=== PATIENT | female | born 1965 | race Caucasian/White ===

== ENCOUNTER → 2017-04-10 | Outpatient (CLI) | payer OTHER ==
--- NOTE | 2017-04-10 10:23 | MM ---
Reason for exam: follow-up at short interval from prior study. Last mammogram was performed 6 months ago. History: Family history of breast cancer in aunt. Physical Findings: Nurse did not find any significant physical abnormalities on exam. MG Diagnostic Mammo RT w CAD CC and MLO view(s) were taken of the right breast. Prior study comparison: October 10, 2016, right breast MG work up mamm w CAD RT. October 08, 2016, bilateral MG screening mammo w CAD. There are scattered fibroglandular densities. No suspicious calcifications are seen. Asymmetric density in the right MLO view. These results were verbally communicated with the patient and result sheet given to the patient on 04/10/17. ASSESSMENT: Incomplete: need additional imaging evaluation, BI-RAD 0 RECOMMENDATION: Ultrasound of the right breast.
--- NOTE | 2017-04-10 10:25 | USB ---
Reason for exam: additional evaluation requested from abnormal screening. History: Family history of breast cancer in aunt. US Breast RT Right breast ultrasound includes all four quadrants, the retroareolar region and axilla. Finding demonstrates no cystic or solid lesion seen. These results were verbally communicated with the patient and result sheet given to the patient on 04/10/17. ASSESSMENT: Negative, BI-RAD 1 RECOMMENDATION: Follow-up diagnostic mammogram of both breasts in 6 months. Back on schedule for September 2017.
== END | disposition home or self-care (01) ==
LOC: RADMAMWWP 08:46
PROVIDERS: ATTEND Family Medicine
DX: R92.8 Other abnormal and inconclusive findings on diagnostic imaging of breast (principal)
CPT/HCPCS: 76641; G0206

== ENCOUNTER → 2018-05-12 | Outpatient (CLI) | payer OTHER ==
--- NOTE | 2018-05-12 14:35 | MM ---
Reason for exam: additional evaluation requested from prior study. Last mammogram was performed 1 year and 1 month ago. History: Family history of breast cancer in aunt. Physical Findings: Nurse did not find any significant physical abnormalities on exam. MG Diagnostic Mammo w CAD LADAN Bilateral CC and MLO view(s) were taken. Prior study comparison: April 10, 2017, right breast MG diagnostic mammo RT w CAD. October 10, 2016, right breast MG work up mamm w CAD RT. The breast tissue is heterogeneously dense. This may lower the sensitivity of mammography. No suspicious abnormality. No significant new findings when compared with previous films. These results were verbally communicated with the patient and result sheet given to the patient on 05/12/18. ASSESSMENT: Negative, BI-RAD 1 RECOMMENDATION: Routine screening mammogram of both breasts in 1 year.
== END | disposition home or self-care (01) ==
LOC: RADMAMWWP 12:47
PROVIDERS: ATTEND Family Medicine
DX: R92.8 Other abnormal and inconclusive findings on diagnostic imaging of breast (principal)
CPT/HCPCS: 77066

== ENCOUNTER → 2020-05-17 | Outpatient (CLI) | payer OTHER ==
--- NOTE | 2020-05-21 10:44 | MM ---
Reason for exam: screening (asymptomatic). Last mammogram was performed 1 year and 1 month ago. History: Patient is postmenopausal. Family history of breast cancer in aunt. Physical Findings: A clinical breast exam by your physician is recommended on an annual basis and results should be correlated with mammographic findings. MG Screening Mammo w CAD Bilateral CC and MLO view(s) were taken. Prior study comparison: April 14, 2019, mammogram, performed at [facility]. October 08, 2016, bilateral MG screening mammo w CAD. October 04, 2015, bilateral MG screening mammo w CAD. The breast tissue is heterogeneously dense. This may lower the sensitivity of mammography. There are benign appearing round calcifications in the left breast. Asymmetric breast tissue in the right anterior upper outer quadrant is stable. There is no discrete abnormality. ASSESSMENT: Benign, BI-RAD 2 RECOMMENDATION: Routine screening mammogram of both breasts in 1 year.
== END | disposition home or self-care (01) ==
LOC: RADMAMWWP 09:46
PROVIDERS: ATTEND Physician Assistant Medical
DX: Z12.31 Encounter for screening mammogram for malignant neoplasm of breast (principal)
CPT/HCPCS: 77067

== ENCOUNTER → 2021-05-23 | Outpatient (CLI) | payer OTHER ==
--- NOTE | 2021-05-27 08:45 | MM ---
Reason for exam: screening (asymptomatic). Last mammogram was performed 1 year ago. History: Patient is postmenopausal. Family history of breast cancer in aunt. Took hormonal contraceptives for 13 years beginning at age 16. Physical Findings: A clinical breast exam by your physician is recommended on an annual basis and results should be correlated with mammographic findings. MG Screening Mammo w CAD Bilateral CC and MLO view(s) were taken. Prior study comparison: May 17, 2020, bilateral MG screening mammo w CAD. April 14, 2019, mammogram, performed at [facility]. There are scattered fibroglandular densities. No significant changes when compared with prior studies. ASSESSMENT: Benign, BI-RAD 2 RECOMMENDATION: Routine screening mammogram of both breasts in 1 year.
== END | disposition home or self-care (01) ==
LOC: RADMAMWWP 13:46
DX: Z12.31 Encounter for screening mammogram for malignant neoplasm of breast (principal); Z78.0 Asymptomatic menopausal state; Z80.3 Family history of malignant neoplasm of breast
CPT/HCPCS: 77067

== ENCOUNTER → 2022-05-26 | Outpatient (CLI) | payer OTHER ==
--- NOTE | 2022-05-27 20:14 | MM ---
Reason for Exam: Screening (asymptomatic). Last screening mammogram was performed 12 month(s) ago. Patient History: Menarche at age 12. First Full-Term at age 29. Late child-bearing (after 30). Postmenopausal. Hormonal Contraceptives, from age 16 until age 27. Maternal aunt had breast cancer, age 52. Risk Values: Susie 5 year model risk: 1.8%. NCI Lifetime model risk: 10.7%. Prior Study Comparison: 04/14/2019 Screening Mammogram, [facility]. 05/17/2020 Bilateral Screening Mammogram, [facility]. 05/23/2021 Bilateral Screening Mammogram, [facility]. Tissue Density: The breast tissue is almost entirely fat. Findings: Analyzed By CAD. Unchanged left-sided upper outer quadrant focal asymmetry. There is no suspicious group of microcalcifications or new suspicious mass in either breast. Overall Assessment: Benign, BI-RAD 2 Management: Screening Mammogram of both breasts in 1 year. 1. Patient should continue monthly self breast exams. 2. A clinical breast exam by your physician is recommended on an annual basis. 3. This exam should not preclude additional follow-up of suspicious palpable abnormalities. Electronically signed and approved by: Lemuel Alexander M.D. Radiologist
== END | disposition home or self-care (01) ==
LOC: RADMAMWWP 09:10
DX: Z12.31 Encounter for screening mammogram for malignant neoplasm of breast (principal)
CPT/HCPCS: 77067

== ENCOUNTER 2022-05-28 08:02 | Day surgery (SDC) | payer OTHER ==
[2022-05-23 16:46] VITALS: BMI 39.0
--- NOTE | 2022-05-28 07:39 | P.GSHP ---
History of Present Illness H&P Date: 05/28/22 CHIEF COMPLAINT: Colon screen HISTORY OF PRESENT ILLNESS: The patient is a 56-year-old female who presents for colon screen. Lower endoscopy was offered for further evaluation and management. PAST MEDICAL HISTORY: Please see list. PAST SURGICAL HISTORY: Please see list. MEDICATIONS: Please see list. ALLERGIES: Please see list. SOCIAL HISTORY: No illicit drug use FAMILY HISTORY: No reports of Crohn disease or ulcerative colitis. REVIEW OF ORGAN SYSTEMS: CONSTITUTIONAL: No reports of fevers or chills. PHYSICAL EXAM: VITAL SIGNS: Stable GENERAL: Well-developed pleasant in no acute distress. HEENT: No scleral icterus. Extraocular movements grossly intact. Moist buccal mucosa. NECK: Supple without lymphadenopathy. CHEST: Unlabored respirations. Equal bilateral excursions. CARDIOVASCULAR: Regular rate and rhythm. Distal 2+ pulses. ABDOMEN: Soft, nontender, nondistended. MUSCULOSKELETAL: No clubbing, cyanosis, or edema. ASSESSMENT: 1. Colon screen. PLAN: 1. Recommend proceeding with a lower endoscopy Past Medical History Past Medical History: Hypertension, Thyroid Disorder Additional Past Medical History / Comment(s): hypothyroid History of Any Multi-Drug Resistant Organisms: None Reported Past Surgical History: Section, Tubal Ligation Additional Past Surgical History / Comment(s): Colonoscopy. Varicose veins lasered, bilat greater saphenous. Past Anesthesia/Blood Transfusion Reactions: No Reported Reaction, Motion Sickness Smoking Status: Former smoker - Past Family History Mother Family Medical History: Deep Vein Thrombosis (DVT) Additional Family Medical History / Comment(s): varicose veins Medications and Allergies Home Medications Medication Instructions Recorded Confirmed Type hydroCHLOROthiazide [Hydrodiuril] 12.5 mg PO DAILY 04/09/14 05/23/22 History B,C/Folic/Zinc/Copper Ox/Vit E 1 each PO DAILY 09/20/15 05/23/22 History [Stress B-Complex Tablet] Cholecalciferol [Vitamin D3] 1,000 unit PO SUWESA 09/20/15 05/23/22 History Levothyroxine Sodium [Synthroid] 25 mcg PO DAILY 09/20/15 05/23/22 History Calcium Carbonate [Calcium] 600 mg PO DAILY 05/23/22 05/23/22 History Fluticasone Propionate [Flonase 2 spray EA NOSTRIL DAILY 05/23/22 05/23/22 History Allergy Relief] Ibuprofen [Motrin Ib] 200 mg PO Q8H PRN 05/23/22 05/23/22 History L.acidoph,Paracasei, B.lactis 1 each PO HS 05/23/22 05/23/22 History [Probiotic] Multivitamins, Thera [Multivitamin 1 tab PO DAILY 05/23/22 05/23/22 History (formulary)] Allergies Allergy/AdvReac Type Severity Reaction Status Date / Time ciprofloxacin [From Cipro] Allergy Vomiting Verified 05/23/22 16:27 ciprofloxacin HCl Allergy Vomiting Verified 05/23/22 16:27 [From Cipro] Sulfa (Sulfonamide Allergy Anaphylaxis Verified 05/23/22 16:27 Antibiotics)
[~2022-05-28 08:02] MED LIST: LACTATED RINGERS 1,000 ML IV SCH; LIDOCAINE 1% (10MG/ML) FOR IV START INTRADERMA PRN
[2022-05-28 08:25] VITALS: TEMP 97.2
[2022-05-28] MEDS ORDERED: PROPOFOL 10 MG/ML 20 ML VIAL IV ONE (09:25)
[2022-05-28 10:01] VITALS: RESP 16
[2022-05-28 10:23] VITALS: BP 128/76; PULSE 57
--- NOTE | 2022-05-28 10:34 | P.PCN ---
Date of Procedure: 05/28/22 Description of Procedure: PREOPERATIVE DIAGNOSIS: Personal history of colon polyps Colonoscopy screening POSTOPERATIVE DIAGNOSIS: Tubular adenoma ascending colon Pandiverticulosis Sigmoid diverticulosis Internal hemorrhoids, grade 2 OPERATION: Colonoscopy to the ileocecal valve and appendiceal orifice, cecum Colonoscopy with cold forceps biopsy SURGEON: Irais Hinojosa MD. ANESTHESIA: MAC. INDICATIONS: The patient is an 56-year-old male who presents personal history of colon polyps. Last colonoscopy 5 years. Benefits and risks were described and informed consent was obtained. DESCRIPTION OF PROCEDURE: The patient had undergone Sutab prep. The patient had been brought into the operating room and laid in the left lateral decubitus position. After adequate intravenous sedation, the rectum was examined with 2% lidocaine jelly. External hemorrhoids were encountered. The rectal tone was within normal limits. No lesions were palpated in the rectal vault. An Olympus colonoscope was advanced until the cecum, ileocecal valve and appendiceal orifice were clearly viewed. The prep was excellent. Pandiverticulosis and sigmoid diverticulosis was encountered. Colonic polyps were found and removed. No evidence of focal colitis was found. Retroflexion of the scope demonstrated grade 2 internal hemorrhoids without active bleeding or inflammation. The colon was desufflated. The patient had tolerated the procedure well. Withdrawal time was over 6 minutes. FINDINGS: Aronchick preparation quality scale 1 (1-5) Internal hemorrhoids, grade 2 External hemorrhoids, grade 2 No arteriovenous malformations. Sigmoid diverticulosis, moderate to severe with pandiverticulosis Removal of 1 polyp: - Cold forceps biopsy at ascending colon, 5 mm polyp. No focal colitis. RECOMMENDATIONS: Repeat colonoscopy in 5 years2026 Plan - Discharge Summary Discharge Rx Participant: No New Discharge Prescriptions: Continue hydroCHLOROthiazide [Hydrodiuril] 12.5 mg PO DAILY Cholecalciferol [Vitamin D3 (25 Mcg = 1000 Iu)] 1,000 unit PO SUWESA Levothyroxine Sodium [Synthroid] 25 mcg PO DAILY B,C/Folic/Zinc/Copper Ox/Vit E [Stress B-Complex Tablet] 1 each PO DAILY L.acidoph,Paracasei, B.lactis [Probiotic] 1 each PO HS Fluticasone Propionate [Flonase Allergy Relief] 2 spray EA NOSTRIL DAILY Ibuprofen [Motrin Ib] 200 mg PO Q8H PRN PRN Reason: Pain Multivitamins, Thera [Multivitamin (formulary)] 1 tab PO DAILY Calcium Carbonate [Calcium] 600 mg PO DAILY Discharge Medication List hydroCHLOROthiazide [Hydrodiuril] 12.5 mg PO DAILY 04/09/14 [History] B,C/Folic/Zinc/Copper Ox/Vit E [Stress B-Complex Tablet] 1 each PO DAILY 09/20/15 [History] Cholecalciferol [Vitamin D3 (25 Mcg = 1000 Iu)] 1,000 unit PO SUWESA 09/20/15 [History] Levothyroxine Sodium [Synthroid] 25 mcg PO DAILY 09/20/15 [History] Calcium Carbonate [Calcium] 600 mg PO DAILY 05/23/22 [History] Fluticasone Propionate [Flonase Allergy Relief] 2 spray EA NOSTRIL DAILY 05/23/22 [History] Ibuprofen [Motrin Ib] 200 mg PO Q8H PRN 05/23/22 [History] L.acidoph,Paracasei, B.lactis [Probiotic] 1 each PO HS 05/23/22 [History] Multivitamins, Thera [Multivitamin (formulary)] 1 tab PO DAILY 05/23/22 [History] Follow up Appointment(s)/Referral(s): Irais Hinojosa MD [STAFF PHYSICIAN] - As Needed Patient Instructions/Handouts: *Surgery [facility] - (Anesthesia) Endoscopy Discharge Instructions, Diverticulosis (DC), Colorectal Polyps (GEN), Diverticulosis Diet (GEN) Activity/Diet/Wound Care/Special Instructions: Repeat colonoscopy in 5 years, 2026 Discharge Disposition: HOME SELF-CARE
== END 2022-05-28 11:21 | disposition home or self-care (01) ==
LOC: ORWHC2ENDO 08:02
PROVIDERS: ATTEND Surgery Plastic and Reconstructive Surgery
DX: Z12.11 Encounter for screening for malignant neoplasm of colon (principal); K63.5 Polyp of colon; K57.30 Diverticulosis of large intestine without perforation or abscess without bleeding; K64.1 Second degree hemorrhoids; K64.4 Residual hemorrhoidal skin tags; Z86.010 Personal history of colon polyps; I10 Essential (primary) hypertension; E03.9 Hypothyroidism, unspecified; Z87.891 Personal history of nicotine dependence; Z79.899 Other long term (current) drug therapy; Z79.890 Hormone replacement therapy; Z88.1 Allergy status to other antibiotic agents; Z98.891 History of uterine scar from previous surgery; Z98.51 Tubal ligation status; Z98.890 Other specified postprocedural states; Z82.49 Family history of ischemic heart disease and other diseases of the circulatory system
CPT/HCPCS: 88305; 45380; J2704

== ENCOUNTER → 2023-06-01 | Outpatient (CLI) | payer OTHER ==
--- NOTE | 2023-06-01 09:50 | MM ---
Reason for Exam: Screening (asymptomatic). Last mammogram was performed 1 year(s) and 1 month(s) ago. Patient History: Menarche at age 12. First Full-Term at age 29. Late child-bearing (after 30). Postmenopausal. Hormonal Contraceptives, from age 16 until age 27. Maternal aunt had breast cancer, age 52. Risk Values: Susie 5 year model risk: 1.8%. Prior Study Comparison: 05/17/2020 Bilateral Screening Mammogram, [facility]. 05/23/2021 Bilateral Screening Mammogram, [facility]. 05/26/2022 Bilateral MG screening mammo w CAD, [facility]. Tissue Density: There are scattered fibroglandular densities. Findings: Analyzed By CAD. There is no suspicious group of microcalcifications or new suspicious mass in either breast. Overall Assessment: Negative, BI-RAD 1 Management: Screening Mammogram of both breasts in 1 year. . Patient should continue monthly self-breast exams. A clinical breast exam by your physician is recommended on an annual basis. This exam should not preclude additional follow-up of suspicious palpable abnormalities. Note on Susie scores and lifetime risk: 1. A Susie score greater than 3% is considered moderate risk. If this is the case, consider specialist referral to assess eligibility for a risk reducing agent. 2. If overall lifetime risk for the development of breast cancer is 20% or higher, the patient may qualify for future screening with alternating mammogram and breast MRI. Electronically signed and approved by: Isidro Omalley M.D. Radiologis
== END | disposition home or self-care (01) ==
LOC: RADMAMWWP 08:35
DX: Z12.31 Encounter for screening mammogram for malignant neoplasm of breast (principal); Z78.0 Asymptomatic menopausal state; Z80.3 Family history of malignant neoplasm of breast
CPT/HCPCS: 77067

== ENCOUNTER → 2024-03-09 | Outpatient (CLI) | payer OTHER ==
--- NOTE | 2024-03-09 17:52 | CT ---
EXAMINATION TYPE: CT brain wo con CT DLP: 1165 mGycm, Automated exposure control for dose reduction was used. DATE OF EXAM: 03/09/2024 4:41 PM COMPARISON: None. CLINICAL INDICATION:Female, 58 years old with history of R51.9 HEADACHE, VERTIGO/HEADACHE TECHNIQUE: Brain: Axial CT images of the brain were obtained with coronal and sagittal reformats created and rev iewed. Contrast used: None. Oral contrast used: None. FINDINGS: Brain: Extra-axial spaces: No abnormal extra-axial fluid collections. Ventricular system: Within normal limits Cerebral parenchyma: No acute intraparenchymal hemorrhage or mass effect. The pinto-white junction is well differentiated. Cerebellum: Unremarkable. Mass effect: No evidence of midline shift. Intracranial vasculature: unremarkable Soft tissues: Normal. Calvarium/osseous structures: No depressed skull fracture. Paranasal sinuses and mastoid air cells: Mild scattered paranasal sinus disease. No evidence for midd le ear effusion or abnormality involving the temporal bones. Visualized orbits: Orbital contents are intact. IMPRESSION: 1. No acute intracranial process. 2. No evidence for middle ear effusion or abnormality involving the temporal bones.
== END | disposition home or self-care (01) ==
LOC: RADCTMAIN 15:44
PROVIDERS: ATTEND Family Medicine
DX: R51.9 Headache, unspecified (principal)
CPT/HCPCS: 70450

== ENCOUNTER → 2024-06-15 | Outpatient (CLI) | payer OTHER ==
--- NOTE | 2024-06-19 13:52 | MM ---
Reason for Exam: Screening (asymptomatic). Last screening mammogram was performed 12 month(s) ago. Patient History: Menarche at age 12. First Full-Term at age 29. Late child-bearing (after 30). Postmenopausal. Hormonal Contraceptives, from age 16 until age 27. Maternal aunt had breast cancer, age 52. Risk Values: Susie 5 year model risk: 1.9%. NCI Lifetime model risk: 10.2%. Prior Study Comparison: 05/23/2021 Bilateral Screening Mammogram, [facility]. 05/26/2022 Bilateral MG screening mammo w CAD, [facility]. 06/01/2023 Bilateral MG screening mammo w CAD, [facility]. Tissue Density: The breasts are almost entirely fatty. Findings: Analyzed By CAD. The pattern is symmetrical. Couple of small focal asymmetries appears stable. No significant interval changes are evident. Benign calcifications within the left breast. No suspicious groups of microcalcifications, spiculated or lobular masses, architectural distortion or other secondary signs of malignancy are mammographically apparent. Overall Assessment: Benign, BI-RAD 2 Management: Screening Mammogram of both breasts in 1 year. A negative mammogram report should not preclude additional follow up of suspicious palpable abnormalities. Patient should continue monthly self breast exam. A clinical breast exam by your physician is recommended on an annual basis and results should be correlated with mammographic findings. Note on Susie scores and lifetime risk: 1. A Susie score greater than 3% is considered moderate risk. If this is the case, consider specialist referral to assess eligibility for a risk reducing agent. 2. If overall lifetime risk for the development of breast cancer is 20% or higher, the patient may qualify for future screening with alternating mammogram and breast MRI. Electronically signed and approved by: Pietro Hernandez D.O. Radiologis
== END | disposition home or self-care (01) ==
LOC: RADMAMWWP 11:12
PROVIDERS: ATTEND Family Medicine
DX: Z12.31 Encounter for screening mammogram for malignant neoplasm of breast (principal); Z78.0 Asymptomatic menopausal state; Z80.3 Family history of malignant neoplasm of breast
CPT/HCPCS: 77067

== ENCOUNTER → 2024-06-29 | Outpatient (CLI) | payer OTHER ==
--- NOTE | 2024-07-02 22:01 | MR ---
EXAMINATION TYPE: MR hip LT wo con DATE OF EXAM: 06/29/2024 COMPARISON: None. HISTORY: Left hip pain. Standard multiplanar, multisequence MRI departmental protocol Multiplanar, multisequence images of the pelvis focusing on left hip were acquired without contrast. FINDINGS: Symmetric moderate narrowing within both hip joints. There is moderate acetabular spurring bilaterally. Spurring slightly more prominent in the left hip. Femoral head shapes are maintained angel aterally. There is increased T2 signal involving the superior aspect of the acetabulum and the left h ip with tiny subchondral cystic change. Small hip joint effusions are present bilaterally slightly la rger in the left hip. There is increased signal along the greater trochanters bilaterally this is mor e prominent in the right hip where there is partial tearing of the insertional fibers at this level. No serpiginous diminished T1 signal to suggest avascular necrosis. Muscle bulk is maintained bilatera lly. No brain adenopathy is seen. Tiny nabothian cysts in the cervix are present. Anteverted uterus is noted. Sigmoid colonic diverticu la are identified. Urinary bladder appears unremarkable. 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 Abnormal bone marrow edema in the superior acetabulum is noted.
== END | disposition home or self-care (01) ==
LOC: RADMRIMAIN 08:23
PROVIDERS: ATTEND Family Medicine
DX: M16.0 Bilateral primary osteoarthritis of hip (principal); M25.552 Pain in left hip; R60.0 Localized edema

== ENCOUNTER → 2025-03-08 | Outpatient (CLI) | payer OTHER ==
--- NOTE | 2025-03-08 08:37 | US ---
EXAMINATION TYPE: US mass soft tissue chest/back DATE OF EXAM: 03/08/2025 COMPARISON: NONE CLINICAL INDICATION: Female, 59 years old with history of M79.89 Left flank soft tissue disorder; Pt states palpable lump left flank x years- pt states massage therapist felt lump has changed TECHNIQUE: Left flank FINDINGS: 1.8 x 1.2 x 4.2 cm isoechoic lesion at area of pt's palpable ?lipoma vs. other etiology IMPRESSION: Isoechoic subcutaneous lesion could reflect lipoma or other nonaggressive etiology. [facility], , 03/08/2025 8:35 AM
== END | disposition home or self-care (01) ==
LOC: RADUSWWP 07:47
PROVIDERS: ATTEND Family Medicine
DX: R22.2 Localized swelling, mass and lump, trunk (principal)

== ENCOUNTER → 2025-06-21 | Outpatient (CLI) | payer OTHER ==
--- NOTE | 2025-07-05 08:57 | MM ---
Reason for Exam: Screening (asymptomatic). Last screening mammogram was performed 12 month(s) ago. Patient History: Menarche at age 12. First Full-Term at age 29. Late child-bearing (after 30). Postmenopausal. Hormonal Contraceptives, from age 16 until age 27. Maternal aunt had breast cancer, age 52. Risk Values: Susie 5 year model risk: 2.0%. NCI Lifetime model risk: 10.0%. Prior Study Comparison: 05/26/2022 Bilateral MG screening mammo w CAD, [facility]. 06/01/2023 Bilateral MG screening mammo w CAD, [facility]. 06/15/2024 Bilateral MG screening mammo w CAD, [facility]. Tissue Density: There are scattered areas of fibroglandular density. Findings: Analyzed By CAD. Right breast: There is no suspicious group of microcalcifications or new suspicious mass. Left breast: There is no suspicious group of microcalcifications or new suspicious mass. Benign-appearing calcifications left breast. Overall Assessment: Negative, BI-RAD 1 Management: Screening Mammogram of both breasts in [address] [facility] will attempt to contact patient to return for supplemental views and ultrasound if indicated. Patient should continue monthly self-breast exams. A clinical breast exam by your physician is recommended on an annual basis. This exam should not preclude additional follow-up of suspicious palpable abnormalities. Note on Susie scores and lifetime risk: 1. A Susie score greater than 3% is considered moderate risk. If this is the case, consider specialist referral to assess eligibility for a risk reducing agent. 2. If overall lifetime risk for the development of breast cancer is 20% or higher, the patient may qualify for future screening with alternating mammogram and breast MRI. [facility], , 06/21/2025 1:13 PM. Electronically signed and approved by: Romel Huitron DO
== END | disposition home or self-care (01) ==
LOC: RADMAMWWP 12:37
PROVIDERS: ATTEND General Practice
DX: Z12.31 Encounter for screening mammogram for malignant neoplasm of breast
CPT/HCPCS: 77067